=== PATIENT | male | born 1970 | race African-American/Black ===

== ENCOUNTER → 2020-03-26 11:50 | Outpatient (BNVA) | payer MEDICAID, SELFPAY | PROVIDERS: PCP Family Medicine; Referring Provider Family Medicine; Visit Provider Urology | DX: Z76.89 Persons encountering health services in other specified circumstances (principal) ==

== ENCOUNTER → 2020-04-29 14:37 | Outpatient (BNVA) | payer MEDICAID, SELFPAY | PROVIDERS: PCP Family Medicine; Visit Provider Nurse Practitioner Family ==

== ENCOUNTER → 2020-07-05 10:54 | Outpatient (BNVA) | payer MEDICAID, SELFPAY | PROVIDERS: PCP Family Medicine; Visit Provider Urology ==

== ENCOUNTER → 2020-07-30 15:21 | Outpatient (BNVA) | payer MEDICAID, SELFPAY | PROVIDERS: PCP Family Medicine; Visit Provider Nurse Practitioner Family | DX: K59.00 Constipation, unspecified (principal) | CPT/HCPCS: 99212 ==

== ENCOUNTER 2020-08-01 12:47 | Emergency (ER) | payer MEDICAID, SELFPAY ==
[2020-08-01 13:09] VITALS: BP 158/86; PULSE 97; RESP 20; TEMP 36.7; O2SAT 94; BMI 61.6
--- NOTE | 2020-08-01 14:05 | ED.NEUROSD ---
HPI - Neuro Symptoms/Deficit General Chief Complaint: Neuro Symptoms/Deficit Stated Complaint: facial droop Time Seen by Provider: 08/01/20 14:05 Related Data Home Medications Medication Instructions Recorded Confirmed amlodipine 10 mg tablet 10 mg PO DAILY 04/29/20 04/29/20 atorvastatin 10 mg tablet 10 mg PO DAILY 04/29/20 04/29/20 chlorthalidone 25 mg tablet 25 mg PO DAILY 04/29/20 04/29/20 folic acid 1 mg tablet 1 mg PO DAILY 04/29/20 04/29/20 gabapentin 300 mg capsule 300 mg PO TID 04/29/20 04/29/20 loratadine 10 mg capsule 10 mg PO DAILY 04/29/20 04/29/20 mecobalamin (vitamin B12) 1,000 1,000 mcg SUBLINGUAL DAILY 04/29/20 04/29/20 mcg disintegrating tablet,sublingual melatonin 3 mg capsule 3 mg PO BEDTIME PRN 04/29/20 04/29/20 omeprazole 20 mg capsule,delayed 20 mg PO DAILY 04/29/20 04/29/20 release thiamine HCl (vitamin B1) 100 mg 100 mg PO DAILY 04/29/20 04/29/20 tablet Previous Rx's Medication Instructions Recorded sildenafil 100 mg tablet 100 mg PO .as needed PRN 30 Days 03/26/20 #30 tab tadalafil 10 mg tablet 10 mg PO DAILY PRN 90 Days #90 tab 07/05/20 docusate sodium 100 mg capsule 100 mg PO BID #60 cap 07/30/20 methylcellulose (laxative) 500 mg 500 mg PO DAILY #30 tab 07/30/20 tablet Allergies Allergy/AdvReac Type Severity Reaction Status Date / Time lisinopril [LISINOPRIL] Allergy Intermediate COUGH Verified 07/30/20 15:33 sulfamethoxazole Allergy Intermediate WELTS Verified 07/30/20 15:33 [From BACTRIM] trimethoprim [From BACTRIM] Allergy Intermediate WELTS Verified 07/30/20 15:33 Sulfa (Sulfonamide Allergy Unknown hives Verified 07/30/20 15:33 Antibiotics) [facility] Past Medical History Surgical History History of ankle surgery History of esophagogastroduodenoscopy (EGD) Hx of umbilical hernia repair Family History Family History Other Diabetes HTN (hypertension) Social History Social History (Updated 07/30/20 @ 15:52 by MILY Castañeda) Alcohol intake: current Alcohol intake frequency: a few times a month Smoking Status: Light tobacco smoker Years Smoked: once in a while Physical Exam Vital Signs: Vital Signs: Last Vital Signs Temp 98.1 F 08/01/20 13:09 Pulse 97 08/01/20 13:09 Resp 20 08/01/20 13:09 BP 158/86 H 08/01/20 13:09 Pulse Ox 94 08/01/20 13:09 Body Mass Index 61.6 Course Course Course Narrative: 1405-This is rapid medical exam. Patient tells me he woke up 3 days ago with right sided facial weakness. No [place], vision changes, or limb weakness. On exam has right sided facial drop. No unilateral weakness in the limbs. 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 Will need labs. Deferred additional HPI, ROS, PE to primary provider. Discharge Plan Discharge Prescriptions: No Action sildenafil 100 mg tablet 100 mg PO .as needed PRN (Reason: sexual activity) 30 Days Qty: 30 RF: 1 tadalafil 10 mg tablet 10 mg PO DAILY PRN (Reason: sexual activity) 90 Days Qty: 90 RF: 0 atorvastatin 10 mg tablet 10 mg PO DAILY RF: 0 amlodipine 10 mg tablet 10 mg PO DAILY RF: 0 chlorthalidone 25 mg tablet 25 mg PO DAILY RF: 0 folic acid 1 mg tablet 1 mg PO DAILY RF: 0 gabapentin 300 mg capsule 300 mg PO TID RF: 0 loratadine 10 mg capsule 10 mg PO DAILY RF: 0 melatonin 3 mg capsule 3 mg PO BEDTIME PRNRF: 0 omeprazole 20 mg capsule,delayed release(DR/EC) 20 mg PO DAILY RF: 0 thiamine HCl (vitamin B1) 100 mg tablet 100 mg PO DAILY RF: 0 mecobalamin (vitamin B12) 1,000 mcg tablet,disintegrating 1,000 mcg sublingual DAILY RF: 0 Citrucel 500 mg tablet 500 mg PO DAILY Qty: 30 RF: 2 docusate sodium 100 mg capsule 100 mg PO BID Qty: 60 RF: 3
== END 2020-08-01 18:03 | disposition left against medical advice (07) ==
PROVIDERS: Emergency Provider Internal Medicine; PCP Family Medicine
DX: R29.810 Facial weakness (principal); I10 Essential (primary) hypertension; Z79.899 Other long term (current) drug therapy; F17.200 Nicotine dependence, unspecified, uncomplicated; Z71.6 Tobacco abuse counseling
CPT/HCPCS: 99282; 99283

== ENCOUNTER → 2020-10-01 14:51 | Outpatient (BNVA) | payer MEDICAID, SELFPAY | PROVIDERS: Visit Provider Nurse Practitioner Family ==

== ENCOUNTER → 2020-10-24 13:53 | Outpatient (BNVA) | payer MEDICAID, SELFPAY | PROVIDERS: Visit Provider Dietitian, Registered | DX: E66.01 Morbid (severe) obesity due to excess calories (principal); Z68.44 Body mass index [BMI] 60.0-69.9, adult; R73.03 Prediabetes; Z71.3 Dietary counseling and surveillance | CPT/HCPCS: 97802 ==

== ENCOUNTER → 2021-02-27 10:33 | Outpatient (BNVA) | payer MEDICAID, SELFPAY | PROVIDERS: PCP Family Medicine; Visit Provider Urology ==

== ENCOUNTER → 2021-09-22 13:34 | Outpatient (BNVA) | payer MEDICARE, MEDICAID, SELFPAY | PROVIDERS: PCP Family Medicine; Visit Provider Internal Medicine | DX: E66.01 Morbid (severe) obesity due to excess calories (principal); G47.33 Obstructive sleep apnea (adult) (pediatric); G47.34 Idiopathic sleep related nonobstructive alveolar hypoventilation; J45.909 Unspecified asthma, uncomplicated; Z68.44 Body mass index [BMI] 60.0-69.9, adult | CPT/HCPCS: 99202 ==

== ENCOUNTER 2021-09-30 16:10 | Outpatient (REF) | payer MEDICARE, MEDICAID, SELFPAY ==
--- NOTE | ~2021-09-30 | XR_ITS ---
EXAMINATION: XR KNEE, LEFT CLINICAL INFORMATION: Pain COMPARISON: Previous left knee x-ray October 2017 TECHNIQUE: 2 views of the left knee. FINDINGS: Bone alignment is normal. No fracture or dislocation is seen. There is arthritis at the patellofemoral and femoral tibial joints. There is a moderate joint effusion. XR/XR knee LT 2V IMPRESSION: Arthritis.
--- NOTE | ~2021-09-30 | XR_ITS ---
EXAMINATION: XR LUMBOSACRAL SPINE CLINICAL INFORMATION: Spondylosis without myelopathy or radiculopathy COMPARISON: None TECHNIQUE: Three views of the lumbosacral spine. FINDINGS: Bone alignment is normal. No fracture or dislocation is seen. Disc spaces are normal. There is mild spondylosis at L4-L5 and T11-T12. There is lower lumbar spine facet arthritis. XR/XR lumbar spine 2-3V IMPRESSION: Degenerative changes.
--- NOTE | ~2021-09-30 | XR_ITS ---
EXAMINATION: XR HIP, RIGHT CLINICAL INFORMATION: Pain COMPARISON: None TECHNIQUE: Two views of the right hip and pelvis. FINDINGS: Bone alignment is normal. No fracture or dislocation is seen. There is mild joint space narrowing at the right hip joint. No osteophyte formation is seen. There is a soft tissue calcification adjacent to the right greater trochanter suggestive of calcific tendinitis or bursitis. Bones of the pelvis are unremarkable. XR/XR hip RT w PEL1V IMPRESSION: Mild joint space narrowing at the right hip joint. Soft tissue calcification adjacent to the right greater trochanter suggestive of calcific tendinitis or bursitis.
--- NOTE | ~2021-09-30 | XR_ITS ---
EXAMINATION: XR SACROILIAC JOINTS CLINICAL INFORMATION: Sacrococcygeal disorder COMPARISON: None TECHNIQUE: 3 views of the sacroiliac joints FINDINGS: Bones and soft tissues are normal. No fracture. Alignment is anatomic. Sacroiliac joint spaces are well-maintained without erosions or surrounding sclerosis. XR/XR sacroiliac joint min 3V IMPRESSION: Normal sacroiliac joints.
== END 2021-09-30 16:11 | disposition home or self-care (01) ==
LOC: HO.XRAY 16:10
PROVIDERS: PCP Family Medicine; Visit Provider Nurse Practitioner Family
DX: M54.16 Radiculopathy, lumbar region (principal); M47.816 Spondylosis without myelopathy or radiculopathy, lumbar region; M25.562 Pain in left knee; M17.0 Bilateral primary osteoarthritis of knee; M25.551 Pain in right hip; M25.571 Pain in right ankle and joints of right foot; M53.3 Sacrococcygeal disorders, not elsewhere classified; E66.01 Morbid (severe) obesity due to excess calories; Z68.44 Body mass index [BMI] 60.0-69.9, adult
CPT/HCPCS: 72100; 72202; 73502; 73560; 99202

== ENCOUNTER 2021-10-28 06:13 | Outpatient (REF) | payer MEDICARE, MEDICAID, SELFPAY ==
--- NOTE | ~2021-10-28 | FL_ITS ---
EXAMINATION: XR FLUOROSCOPY WITH IMAGES CLINICAL INFORMATION: M25.562 - Pain in left knee COMPARISON: Radiographs left knee 09/30/2021 TECHNIQUE: Fluoroscopy performed by Dr. Elías Walden. Fluoroscopy time: 0.4 minutes. Cumulative Dose: 5.64 mGy. DAP: 1.53 Gy-cm2. Images: 3. FINDINGS: There are spinal needles adjacent to the distal femoral shaft, medial and lateral sides, mid depth. There is a spinal needle adjacent to the proximal tibia on medial side mid depth. There are again degenerative changes demonstrated with narrowing medial knee joint compartment, osteophytes, and mild genu varus. FL/FL guidance in treatment room IMPRESSION: Fluoroscopy for pain management procedures.
== END 2021-10-28 06:14 | disposition home or self-care (01) ==
LOC: HO.RADIR 06:13
PROVIDERS: Visit Provider Anesthesiology
DX: M17.12 Unilateral primary osteoarthritis, left knee (principal)
CPT/HCPCS: 64454; J2795

== ENCOUNTER → 2021-10-30 08:04 | Outpatient (BNVA) | payer MEDICARE, MEDICAID, SELFPAY | PROVIDERS: PCP Family Medicine; Visit Provider Anesthesiology | DX: E66.01 Morbid (severe) obesity due to excess calories (principal); Z68.44 Body mass index [BMI] 60.0-69.9, adult; M54.16 Radiculopathy, lumbar region; M47.816 Spondylosis without myelopathy or radiculopathy, lumbar region; M25.562 Pain in left knee; M53.3 Sacrococcygeal disorders, not elsewhere classified; M25.551 Pain in right hip | CPT/HCPCS: 99212 ==

== ENCOUNTER → 2021-11-24 13:58 | Outpatient (BNVA) | payer MEDICARE, MEDICAID, SELFPAY | PROVIDERS: PCP Family Medicine; Visit Provider Internal Medicine | DX: E66.01 Morbid (severe) obesity due to excess calories (principal); G47.33 Obstructive sleep apnea (adult) (pediatric); G47.34 Idiopathic sleep related nonobstructive alveolar hypoventilation; J45.909 Unspecified asthma, uncomplicated; Z68.44 Body mass index [BMI] 60.0-69.9, adult | CPT/HCPCS: 99212 ==

== ENCOUNTER 2021-12-16 13:13 | Outpatient (REF) | payer MEDICARE, MEDICAID, SELFPAY ==
--- NOTE | ~2021-12-16 | XR_ITS ---
EXAMINATION: XR SHOULDER, LEFT CLINICAL INFORMATION: Pain. COMPARISON: Regressed dated 12/21/2017. TECHNIQUE: AP external rotation, Grashey, scapular Y, and axillary views of the left shoulder. FINDINGS: Bony alignment and mineralization are normal. The glenohumeral joint is intact. The acromioclavicular and coracoclavicular intervals are normal. There is a small distal acromial undersurface osteophyte. There is mild cortical irregularity and subcortical sclerosis of the greater tuberosity of the proximal left humerus. No fracture or dislocation is seen. There is no abnormal soft tissue calcification or foreign body. No left pneumothorax is seen. XR/XR shoulder LT min 2V IMPRESSION: 1. No fracture or dislocation is seen. 2. Findings suggest possible rotator cuff impingement. No dioni calcific tendinitis is seen.
== END 2021-12-16 13:14 | disposition home or self-care (01) ==
LOC: HO.XRAY 13:13
PROVIDERS: PCP Family Medicine; Visit Provider Family Medicine
DX: M25.512 Pain in left shoulder (principal)
CPT/HCPCS: 73030

== ENCOUNTER → 2022-02-10 11:28 | Outpatient (BNVA) | payer MEDICARE, MEDICAID, SELFPAY | PROVIDERS: Visit Provider Internal Medicine | DX: G47.33 Obstructive sleep apnea (adult) (pediatric) (principal); G47.34 Idiopathic sleep related nonobstructive alveolar hypoventilation; J45.909 Unspecified asthma, uncomplicated; E66.01 Morbid (severe) obesity due to excess calories; Z68.44 Body mass index [BMI] 60.0-69.9, adult | CPT/HCPCS: Q3014 ==

== ENCOUNTER 2022-09-25 12:10 | Outpatient (REF) | payer MEDICARE, MEDICAID, SELFPAY ==
--- NOTE | ~2022-09-25 | XR_ITS ---
EXAMINATION: XR HIP, RIGHT CLINICAL INFORMATION: Pain COMPARISON: Previous x-ray September 2021 TECHNIQUE: Two views of the right hip. FINDINGS: Bone alignment is normal. No fracture or dislocation. Moderate arthritis at the right hip joint with joint space narrowing and osteophyte formation. Soft tissue calcification adjacent to the greater trochanter suggestive of calcific bursitis or tendinitis. Soft tissue arterial calcification. XR/XR hip RT min 2V IMPRESSION: Arthritis. Soft tissue calcification adjacent to the right greater trochanter.
--- NOTE | ~2022-09-25 | XR_ITS ---
EXAMINATION: XR KNEE, LEFT CLINICAL INFORMATION: Previous x-ray September 2021 COMPARISON: None available. TECHNIQUE: Four views of the left knee. FINDINGS: There is new medial subluxation of the distal femur with respect to the proximal tibia. Bone alignment is otherwise normal. No fracture or dislocation. There is severe arthritis at the medial femoral tibial joint with lfri-or-fvif appearance. There is mild to moderate arthritis at the patellofemoral and lateral femoral tibial joint. There is a small to moderate joint effusion. XR/XR knee LT 3V IMPRESSION: Medial subluxation of the distal femur with respect to the proximal tibia and osteoarthritis increased from September 2021.
== END 2022-09-25 12:11 | disposition home or self-care (01) ==
LOC: HO.HHCX 12:10
PROVIDERS: Visit Provider Family Medicine
DX: M25.562 Pain in left knee (principal); M25.551 Pain in right hip
CPT/HCPCS: 73502; 73562

== ENCOUNTER 2022-10-30 09:38 | Outpatient (REF) | payer MEDICARE, MEDICAID, SELFPAY ==
--- NOTE | ~2022-10-30 | XR_ITS ---
EXAMINATION: XR PELVIS CLINICAL INFORMATION: Pain COMPARISON: Frontal view right hip 09/25/22 TECHNIQUE: AP view of the pelvis. FINDINGS: The upper aspect of the iliac bones are excluded. No definite disruption of the SI joints symphysis or left hip. There is marked narrowing of the superolateral femoral acetabular joints and there proliferative osteophytes involving the femoral head. Smooth ossification adjacent to the greater trochanter. In comparison with frontal view of the pelvis 09/30/21 joint space narrowing has likely worsened XR/XR pelvis 1-2V IMPRESSION: 1. No acute fracture or subluxation. 2. Moderate to marked arthritic changes of the right hip.
== END 2022-10-30 09:39 | disposition home or self-care (01) ==
LOC: HO.HOSX 09:38
PROVIDERS: Visit Provider Orthopaedic Surgery
DX: M17.12 Unilateral primary osteoarthritis, left knee (principal); M16.11 Unilateral primary osteoarthritis, right hip; E66.01 Morbid (severe) obesity due to excess calories; Z68.43 Body mass index [BMI] 50.0-59.9, adult
CPT/HCPCS: 20610; 72170; 99202; J1100

== ENCOUNTER 2022-10-30 10:54 | Outpatient (AMB) | payer MEDICARE, MEDICAID, SELFPAY ==
--- NOTE | 2022-10-30 11:34 | A.OFFVIS_ITS ---
Intake Vital Signs 10/30/22 11:35 Height 6 ft 2 in Weight 448 lb BMI 57.5 Intake Visit Reasons: New Pt - Right Hip, Left Knee Pain Intake Note: Jordon is a 51 year old male who presents today as a new patient with complaints of right hip pain and left knee pain. He has previously been treated for his left knee pain with pain mgmt who did a Left GNB 10/28/21. Currently states his left knee was to dislocate and gives out. States he would like to discuss treatment vs surgery. States he is having groin pain and at times has sharp radiating pain down his leg. Patient is also having pain in his left shoulder. Allergies lisinopril [LISINOPRIL] Allergy (Intermediate, Verified 10/30/22 11:54) COUGH sulfamethoxazole [From BACTRIM] Allergy (Intermediate, Verified 10/30/22 11:54) WELTS trimethoprim [From BACTRIM] Allergy (Intermediate, Verified 10/30/22 11:54) WELTS Sulfa (Sulfonamide Antibiotics) Allergy (Unknown, Verified 10/30/22 11:54) hives HPI New Pt - Right Hip, Left Knee Pain HPI Details this is a 51-year-old gentleman with right hip and left knee pain. He has difficulty walking comfortably. He has difficulty with stairs. He has difficulty sleeping at night. He has been on a weight loss journey. He has lost 60 lb over the past 6 months approximately and is continuing to work toward weight loss. His BMI is currently 57. [facility] Medical History Asthma Nocturnal hypoxemia DINORA (obstructive sleep apnea) Surgical History History of ankle surgery History of esophagogastroduodenoscopy (EGD) Hx of umbilical hernia repair Family History Other Diabetes HTN (hypertension) Social History Alcohol intake: current Alcohol intake frequency: a few times a month Years Smoked: once in a while Physical Exam Vital Signs: BMI result Body Mass Index 57.5 Const Other: Morbidly obese but truncal obesity Extrem Other: positive impingement test right hip with antalgic gait left knee with tenderness to palpation medial and lateral joint line. 120 degrees of flexion with full extension. Office Procedures Joint Injection/Drain Joint Injection/Drain Details: Injected 1 mL of Decadron and 3 mL 1% lidocaine and 3 mL of 0.25% Marcaine. Site was prepped using aseptic technique. Patient tolerated the procedure well. Primary Site: left knee Approach Used: anterolateral Coding - Large joint Procedure code (CPT) selection complete Results Reviewed Results Reviewed: 10/30/22 12:02 Lidocaine HCl 2 % MPF [Xylocaine 2 % MPF] 5 ml .ROUTE .STK-MED ONE dexAMETHasone sod phosphate [Decadron] 4 mg .ROUTE .STK-MED ONE I personally reviewed relevant radiographs. Severe right hip and left knee osteoarthritis Assessment & Plan Assessment & Plan (1) Osteoarthritis of left knee: Code(s): M17.12 - Unilateral primary osteoarthritis, left knee Plan: patient has severe osteoarthritis of the left knee. I injected his left knee. Recommend weight loss. (2) Primary osteoarthritis of right hip: Code(s): M16.11 - Unilateral primary osteoarthritis, right hip Plan: Patient is severe osteoarthritis of the right hip. This is a difficult problem given his weight. I recommend activity modification and continue use of assistive device. (3) Morbid obesity with BMI of 50.0-59.9, adult: Code(s): E66.01 - Morbid (severe) obesity due to excess calories; Z68.43 - Body mass index [BMI] 50.0-59.9, adult Plan: Patient is working on this. I recommend consultation with bariatric spur. Orders: Orders XR pelvis 1-2V Today M25.559 - Pain in unspecified hip Coding Level of Care Code New Pt Level 4 (68092) Diagnoses Osteoarthritis of left knee M17.12 Primary osteoarthritis of right hip M16.11 Morbid obesity with BMI of 50.0-59.9, adult E66.01; Z68.43 CPT Codes Coding - Large joint: 12748 - Large joint ([id number])
[2022-10-30 11:35] VITALS: BMI 57.5
== END 2022-10-30 12:12 | disposition home or self-care (01) ==
PROVIDERS: Visit Provider Orthopaedic Surgery
DX: M17.12 Unilateral primary osteoarthritis, left knee (principal); M16.11 Unilateral primary osteoarthritis, right hip; E66.01 Morbid (severe) obesity due to excess calories; Z68.43 Body mass index [BMI] 50.0-59.9, adult
CPT/HCPCS: 20610; 99204

== ENCOUNTER 2023-01-25 10:12 | Outpatient (AMB) | payer MEDICARE, SELFPAY ==
--- NOTE | 2023-01-25 10:18 | A.OFFVIS_ITS ---
Intake Intake Visit Reasons: OV-left knee injection-last injection 10/30/22 Intake Note: Jordon is a 52 year old male who presents today for a follow up of his left knee OA. Last injection done 10/30/22, Left GNB done with Pain mgmt 10/28/21. He also reports some left hand pain and swelling today. He also reports left shoulder pain from an injury a few years ago. He is looking to discuss his left shoulder today and if he needs surgical intervention. Allergies lisinopril [LISINOPRIL] Allergy (Intermediate, Verified 01/25/23 10:21) COUGH sulfamethoxazole [From BACTRIM] Allergy (Intermediate, Verified 01/25/23 10:21) WELTS trimethoprim [From BACTRIM] Allergy (Intermediate, Verified 01/25/23 10:21) WELTS Sulfa (Sulfonamide Antibiotics) Allergy (Unknown, Verified 01/25/23 10:21) hives Medication List - Last Reconciled 01/25/23 by Skye Herrera RN albuterol sulfate 90 mcg/actuation (Ventolin HFA) inhalation amlodipine 10 mg PO DAILY atorvastatin 10 mg PO DAILY bupropion HCl 150 mg PO QAM chlorthalidone 25 mg PO DAILY cholecalciferol (vitamin D3) 50 mcg PO QAM docusate sodium 100 mg PO BID fluticasone propionate 220 mcg/actuation (Flovent HFA) 2 puffs inhalation BID folic acid 1 mg PO DAILY gabapentin 300 mg PO TID loratadine 10 mg PO DAILY loratadine 10 mg PO QAM mecobalamin (vitamin B12) 1,000 mcg sublingual DAILY melatonin 3 mg PO BEDTIME PRN melatonin 3 mg PO BEDTIME methylcellulose (laxative) (Citrucel) 500 mg PO DAILY multivitamin (One Daily Multivitamin tablet) 1 tab PO QAM omeprazole 20 mg PO DAILY semaglutide (Ozempic) 1 mg subcut QWEEK sildenafil 100 mg PO .as needed PRN 30 days tadalafil 10 mg PO DAILY PRN 90 days thiamine HCl (vitamin B1) 100 mg PO DAILY Ventolin HFA 90 mcg/actuation (albuterol sulfate) 2 puffs PO Q4-6H PRN NS HPI OV-left knee injection-last injection 10/30/22 HPI Details Jordon is a 52 year old man who returns with complaints of left knee & shoulder pain. He was last seen for his left knee OA and injected on 10/30/22. He continues to complain of pain with daily activity, worse with using stairs. He also complains of left shoulder pain & weakness. He says he injured his shoulder in ~2018 and has had intermittent pain since. [facility] Medical History Asthma Nocturnal hypoxemia DINORA (obstructive sleep apnea) Surgical History History of ankle surgery History of esophagogastroduodenoscopy (EGD) Hx of umbilical hernia repair Family History Other Diabetes HTN (hypertension) Social History Alcohol intake: current Alcohol intake frequency: a few times a month Years Smoked: once in a while Review of Systems Const All systems reviewed & are unremarkable except as noted in HPI and below Physical Exam Const Other: Morbidly obese but truncal obesity General: no acute distress, alert and awake Orientation/consciousness: patient oriented x3 HEENT Head: Yes normocephalic and Yes atraumatic Eyes EOM: EOMs intact bilaterally Resp Effort & Inspection: normal respiratory effort and able to speak in complete sentences Cardio Jugular venous distension: no JVD Skin General skin exam: turgor normal Rashes: no rashes Neuro General: patient oriented x3 Extrem Other: Left Knee: TTP medial and lateral joint line. 120 degrees of flexion with full extension. Left Shoulder: Weakness with empty can testing Psych Appearance: grossly normal Affect: normal affect Attitude: cooperative Office Procedures Joint Injection/Drain Joint Injection/Drain Details: Injected 1 mL of Decadron and 3 mL 1% lidocaine and 3 mL of 0.25% Marcaine. Site was prepped using aseptic technique. Patient tolerated the procedure well. Primary Site: left knee Approach Used: anterolateral Coding 89463 - Large joint Procedure code (CPT) selection complete Results Reviewed Results Reviewed: 01/25/23 10:41 BUPivacaine MPF 0.25 % [Sensorcaine-MPF 0.25% 10 ML] 10 ml .ROUTE .STK-MED ONE Lidocaine HCl 2 % MPF [Xylocaine 2 % MPF] 5 ml .ROUTE .STK-MED ONE dexAMETHasone sod phosphate [Decadron] 4 mg .ROUTE .STK-MED ONE Assessment & Plan Assessment & Plan (1) Osteoarthritis of left knee: Code(s): M17.12 - Unilateral primary osteoarthritis, left knee Plan: This is a 52 year old man with severe OA of the left knee. He has pain with daily activity, worse with using stairs, and some relief from steroid injections. I injected his left knee, which he tolerated well. I recommend weight loss. He can follow up prn (2) Morbid obesity with BMI of 50.0-59.9, adult: Code(s): E66.01 - Morbid (severe) obesity due to excess calories; Z68.43 - Body mass index [BMI] 50.0-59.9, adult Plan: Patient is working on this. I recommend consultation with bariatric spur. (3) Left shoulder pain: Code(s): M25.512 - Pain in left shoulder Plan: COntinued shoulder pain & weakness, with a hx of injury in ~2018 that has not improved with PT and injections and activity modification. I ordered PT and an MRI of his shoulder to assess. He will follow up when completed for review. (4) Internal derangement of left shoulder: Code(s): M24.812 - Other specific joint derangements of left shoulder, not elsewhere classified Plan Scribed for Heath Melendez MD by Diego Lin, medical numerical control operator, on 01/25/23 at 11:00 AM, EST. Orders: Orders PT Evaluation and Treatment Today M24.812 - Other specific joint derangements of left shoulder, not elsewhere classified, M25.512 - Pain in left shoulder MR shoulder LT wo con Today M24.812 - Other specific joint derangements of left shoulder, not elsewhere classified Coding Level of Care Code Est Pt Level 4 (27879) Diagnoses Osteoarthritis of left knee M17.12 Morbid obesity with BMI of 50.0-59.9, adult E66.01; Z68.43 Left shoulder pain M25.512 Internal derangement of left shoulder M24.812 CPT Codes Coding - 15752 Large joint: 55570 - Large joint ([id number])
== END 2023-01-25 10:58 | disposition home or self-care (01) ==
PROVIDERS: Visit Provider Orthopaedic Surgery
DX: M17.12 Unilateral primary osteoarthritis, left knee (principal); M24.812 Other specific joint derangements of left shoulder, not elsewhere classified; E66.01 Morbid (severe) obesity due to excess calories; Z68.43 Body mass index [BMI] 50.0-59.9, adult
CPT/HCPCS: 20610; 99214

== ENCOUNTER → 2023-01-25 10:12 | Outpatient (BNVA) | payer MEDICARE, MEDICAID, SELFPAY | PROVIDERS: Visit Provider Orthopaedic Surgery | DX: M17.12 Unilateral primary osteoarthritis, left knee (principal); M25.512 Pain in left shoulder; M24.812 Other specific joint derangements of left shoulder, not elsewhere classified; E66.01 Morbid (severe) obesity due to excess calories; Z68.43 Body mass index [BMI] 50.0-59.9, adult | CPT/HCPCS: 20610; 99212; J1100 ==

== ENCOUNTER 2023-02-01 11:16 | Outpatient (REF) | payer MEDICARE, MEDICAID, SELFPAY ==
[2023-02-01 14:05] LABS: Uric Acid 7.1 mg/dL (3.4-7.0)
[2023-02-01 14:32] LABS: Microalbum/Creatinine Ratio Ur 3.1 ug/mg cr (<30)
== END 2023-02-01 11:17 | disposition home or self-care (01) ==
LOC: HO.HHCL 11:16
PROVIDERS: Visit Provider Family Medicine
DX: M79.642 Pain in left hand (principal); E66.01 Morbid (severe) obesity due to excess calories
CPT/HCPCS: 36415; 82043; 82570; 84550

== ENCOUNTER 2023-03-30 11:09 | Emergency (ER) | payer MEDICARE, MEDICAID, SELFPAY ==
[2023-03-30 12:11] VITALS: BP 153/100; PULSE 67; RESP 16; TEMP 37.1; O2SAT 100; BMI 52.6
--- NOTE | 2023-03-30 12:14 | ED.GENADULT ---
HPI - General Adult General Chief complaint: Upper Respiratory Symptoms Stated complaint: ear infection Time Seen by Provider: 03/30/23 12:14 Source: patient, RN notes reviewed and old records reviewed Mode of arrival: ambulatory Limitations: no limitations History of Present Illness HPI narrative: 52-year-old male presents for evaluation of dental pain and ear pain. Patient reports his pain is ear started about 5 days ago it is actually improving He reports that he had drainage from the right ear He also reports swelling in his gums This started 2 days ago Related Data Home Medications Medication Instructions Recorded Confirmed amlodipine 10 mg tablet 10 mg PO DAILY 04/29/20 01/25/23 atorvastatin 10 mg tablet 10 mg PO DAILY 04/29/20 01/25/23 chlorthalidone 25 mg tablet 25 mg PO DAILY 04/29/20 01/25/23 folic acid 1 mg tablet 1 mg PO DAILY 04/29/20 01/25/23 gabapentin 300 mg capsule 300 mg PO TID 04/29/20 01/25/23 loratadine 10 mg capsule 10 mg PO DAILY 04/29/20 01/25/23 mecobalamin (vitamin B12) 1,000 1,000 mcg sublingual DAILY 04/29/20 01/25/23 mcg disintegrating tablet,sublingual melatonin 3 mg capsule 3 mg PO BEDTIME PRN 04/29/20 01/25/23 thiamine HCl (vitamin B1) 100 mg 100 mg PO DAILY 04/29/20 01/25/23 tablet bupropion HCl 150 mg 24 hr tablet, 150 mg PO QAM 02/27/21 01/25/23 extended release cholecalciferol (vitamin D3) 50 50 mcg PO QAM 02/27/21 01/25/23 mcg (2,000 unit) capsule fluticasone propionate 220 2 puff inhalation BID 02/27/21 01/25/23 mcg/actuation HFA aerosol inhaler (Flovent HFA) loratadine 10 mg tablet 10 mg PO QAM allergies 02/27/21 01/25/23 melatonin 3 mg tablet 3 mg PO BEDTIME 02/27/21 01/25/23 multivitamin (One Daily 1 tab PO QAM 02/27/21 01/25/23 Multivitamin tablet) albuterol sulfate 90 mcg/actuation inhalation 09/30/21 01/25/23 aerosol inhaler (Ventolin HFA) semaglutide 1 mg/dose (2 mg/1.5 1 mg subcut QWEEK 01/25/23 01/25/23 mL) subcutaneous pen injector (Ozempic) Previous Rx's Medication Instructions Recorded omeprazole 20 mg capsule,delayed 20 mg PO DAILY #30 caps 10/01/20 release docusate sodium 100 mg capsule 100 mg PO BID #60 caps 12/23/20 methylcellulose (laxative) 500 mg 500 mg PO DAILY #30 tabs 01/21/21 tablet (Citrucel) sildenafil 100 mg tablet 100 mg PO .as needed PRN sexual 02/27/21 activity 30 days #30 tabs tadalafil 10 mg tablet 10 mg PO DAILY PRN sexual activity 02/27/21 90 days #90 tabs Ventolin HFA 90 mcg/actuation 2 puff PO Q4-6H PRN for wheezing 07/01/22 aerosol inhaler (albuterol sulfate) #18 grams acetic acid 2 % ear solution 3 drp otic (ears) Q6H 7 days #15 mL 03/30/23 amoxicillin 500 mg capsule 500 mg PO Q8H #30 caps 03/30/23 Allergies Allergy/AdvReac Type Severity Reaction Status Date / Time lisinopril [LISINOPRIL] Allergy Intermediate COUGH Verified 01/25/23 10:21 sulfamethoxazole Allergy Intermediate WELTS Verified 01/25/23 10:21 [From BACTRIM] trimethoprim [From BACTRIM] Allergy Intermediate WELTS Verified 01/25/23 10:21 Sulfa (Sulfonamide Allergy Unknown hives Verified 01/25/23 10:21 Antibiotics) Review of Systems Constitutional: Constitutional: Denies chills and Denies fever(s) ENT: Reports ear discharge, Reports otalgia and Reports mouth pain Cardiovascular: Cardiovascular: Denies chest pain Respiratory: Respiratory: Denies cough and Denies pain with cough Gastrointestinal: Gastrointestinal: Denies abdominal pain, Denies nausea and Denies vomiting Musculoskeletal: Musculoskeletal: Denies back pain [facility] Past Medical History Medical History Asthma Nocturnal hypoxemia DINORA (obstructive sleep apnea) Surgical History History of ankle surgery History of esophagogastroduodenoscopy (EGD) Hx of umbilical hernia repair Family History Family History Other Diabetes HTN (hypertension) Social History Social History Alcohol intake: current Alcohol intake frequency: a few times a month Years Smoked: once in a while Physical Exam ED Vital Signs: Vital Signs - 24 hr 03/30/23 12:11 Temperature 98.7 F Pulse Rate 67 Respiratory Rate 16 Blood Pressure 153/100 H Pulse Oximetry 100 Oxygen Delivery Method Room Air BMI result Body Mass Index 52.6 Const General: healthy appearing, comfortable, no acute distress, alert and awake Nutritional Appearance: well nourished Orientation/consciousness: patient oriented x3 HENMT Other: No tenderness with manipulation of the tragus and pinna bilaterally. No otorrhea Multiple dental caries, there is slight gingival edema around tooth numbers 8 and 9. No obvious drainable abscess Head: Yes normocephalic and Yes atraumatic Ears: TM's normal bilaterally and EAC's normal Mouth: other Throat: Yes posterior oropharynx normal Eyes Eyelids: Yes eyelids normal Conjunctivae: conjunctivae normal Sclerae: sclerae normal Corneas: corneas normal Pupils: Equal, round and reactive pupils present EOM: EOMs intact bilaterally Neck Neck: Yes full ROM Resp Effort & Inspection: normal respiratory effort, able to speak in complete sentences and not labored Skin General skin exam: elasticity normal Neuro General: patient oriented x3 Cranial nerves: Yes Equal, round and reactive pupils present and Yes Bilaterally intact EOM present Cognition (Neuro): normal cognition Extrem Other: Moving all extremities well without any obvious deformities Medical Decision Making Medical Decision Making MDM Narrative: 52-year-old male presents for evaluation of ear pain and dental pain. His your pain appears to be improving. There is no obvious otitis media or otitis externa. Will treat with ascetic acid drops. The patient given amoxicillin for dental caries Differential Diagnosis Differential Diagnoses: The differential diagnosis associated with the presentation includes Otitis media Otitis externa Dental caries Dental abscess Discharge Plan Discharge Clinical Impression: Dental caries, Ear pain, right Patient Disposition: Home, Self-Care Instructions: Earache (ED) Additional Instructions: Use ascetic acid drops as directed to each ear Take amoxicillin 3 times daily for 10 days Follow-up with your primary doctor as well as your dentist Prescriptions: New amoxicillin 500 mg capsule 500 mg PO Q8H Qty: 30 0RF acetic acid 2 % solution 3 drp otic (ears) Q6H 7 Days Qty: 15 0RF Rx Instructions: apply to (cotton) wick; replace wick every 24 hours No Action docusate sodium 100 mg capsule 100 mg PO BID Qty: 60 6RF Citrucel 500 mg tablet 500 mg PO DAILY Qty: 30 6RF Rx Instructions: take with fool glass of water first thing in AM. albuterol sulfate [Ventolin HFA] 90 mcg/actuation HFA aerosol inhaler 2 puff PO Q4-6H PRN (Reason: for wheezing) Qty: 18 2RF atorvastatin 10 mg tablet 10 mg PO DAILY amlodipine 10 mg tablet 10 mg PO DAILY chlorthalidone 25 mg tablet 25 mg PO DAILY folic acid 1 mg tablet 1 mg PO DAILY gabapentin 300 mg capsule 300 mg PO TID loratadine 10 mg capsule 10 mg PO DAILY melatonin 3 mg capsule 3 mg PO BEDTIME PRN thiamine HCl (vitamin B1) 100 mg tablet 100 mg PO DAILY mecobalamin (vitamin B12) 1,000 mcg tablet,disintegrating 1,000 mcg sublingual DAILY Rx Instructions: place tablet under tongue and allow to dissolve for at least30 secs before swallowing omeprazole 20 mg capsule,delayed release(DR/EC) 20 mg PO DAILY Qty: 30 6RF multivitamin [One Daily Multivitamin] Tablet 1 tab PO QAM melatonin 3 mg tablet 3 mg PO BEDTIME Flovent HFA 220 mcg/actuation HFA aerosol inhaler 2 puff inhalation BID loratadine 10 mg tablet 10 mg PO QAM bupropion HCl 150 mg tablet extended release 24 hr 150 mg PO QAM cholecalciferol (vitamin D3) 50 mcg (2,000 unit) capsule 50 mcg PO QAM tadalafil 10 mg tablet 10 mg PO DAILY PRN (Reason: sexual activity) 90 Days Qty: 90 1RF Rx Instructions: daily sildenafil 100 mg tablet 100 mg PO .as needed PRN (Reason: sexual activity) 30 Days Qty: 30 1RF Rx Instructions: administer 60 minutes before intended activity albuterol sulfate [Ventolin HFA] 90 mcg/actuation HFA aerosol inhaler inhalation Ozempic 1 mg/dose (2 mg/1.5 mL) pen injector 1 mg subcut QWEEK
== END 2023-03-30 12:30 | disposition home or self-care (01) ==
LOC: HO.ED 12:28
PROVIDERS: Emergency Provider Emergency Medicine; PCP Family Medicine
DX: K02.9 Dental caries, unspecified (principal); H92.03 Otalgia, bilateral; K08.89 Other specified disorders of teeth and supporting structures; Z79.899 Other long term (current) drug therapy
CPT/HCPCS: 99282; 99283

== ENCOUNTER 2023-10-19 12:56 | Outpatient (REF) | payer OTHER, MEDICAID, SELFPAY ==
[2023-10-20 08:18] LABS: Syphilis Screen Nonreactive (Nonreactive)
[2023-10-20 08:23] LABS: HIV AB/AG Nonreactive (Nonreactive); HIV Num 1 0.06 S/CO (0.00-0.99); ~HepC Num1 0.16 S/CO (0.00-0.79); ~Hepatitis C Antibody Nonreactive (Nonreactive)
== END 2023-10-19 12:57 | disposition home or self-care (01) ==
LOC: HO.HHCL 12:56
PROVIDERS: Visit Provider Family Medicine
DX: A64 Unspecified sexually transmitted disease (principal)
CPT/HCPCS: 36415; 86780; 86803; 87389

== ENCOUNTER 2024-01-05 11:18 | Outpatient (REF) | payer OTHER, MEDICAID, SELFPAY ==
[2024-01-05 14:35] LABS: Alanine Aminotransferase 17 U/L (0-40); Albumin Level 4.2 g/dL (3.5-5.0); Alkaline Phosphatase 52 U/L (39-117); Anion Gap 15 (12-20); Aspartate Amino Transferase 15 U/L (5-37); Bilirubin Direct 0.2 mg/dL (0.0-0.5); Bilirubin Total 0.4 mg/dL (0.0-1.0); Blood Urea Nitrogen 11 mg/dL (9-16); Carbon Dioxide 29 mmol/L (22-29); Chloride 101 mmol/L (96-108); Cholesterol 208 mg/dL (<200); Estimated Glomerular Filt Rate > 60; Glucose Random 106 mg/dL (60-115); HDL Cholesterol 52 mg/dL (>40); LDL Cholesterol Calculated 125 mg/dL (<100); Potassium 3.4 mmol/L (3.3-5.1); Sodium 142 mmol/L (135-145); Triglycerides 158 mg/dL (<150)
[2024-01-05 15:42] LABS: Estimated Average Glucose 111 mg/dL; Hemoglobin A1c % 5.5 % (<6.0)
== END 2024-01-05 11:19 | disposition home or self-care (01) ==
LOC: HO.HHCL 11:18
PROVIDERS: Visit Provider Family Medicine
DX: E11.9 Type 2 diabetes mellitus without complications (principal)
CPT/HCPCS: 36415; 80048; 80061; 80076; 83036

== ENCOUNTER 2024-01-12 10:25 | Outpatient (REF) | payer OTHER, MEDICAID, SELFPAY ==
[2024-01-12 11:58] LABS: Creatinine Urine 392.96 mg/dL; Microalbum/Creatinine Ratio Ur 5.5 ug/mg cr (<30)
[2024-01-12 12:58] LABS: CT PCR NOT DETECTED (Not Detect.); NG PCR NOT DETECTED (Not Detect.)
== END 2024-01-12 10:26 | disposition home or self-care (01) ==
LOC: HO.HHCL 10:25
PROVIDERS: Visit Provider Family Medicine
DX: E11.9 Type 2 diabetes mellitus without complications (principal); A64 Unspecified sexually transmitted disease
CPT/HCPCS: 82043; 82570; 87491; 87591

== ENCOUNTER 2024-01-12 11:30 | Outpatient (REF) | payer OTHER, MEDICAID, SELFPAY | END 2024-01-12 11:31 | disposition home or self-care (01) | LOC: HO.HHCLNP 11:30 | PROVIDERS: Visit Provider Emergency Medicine | DX: L73.8 Other specified follicular disorders (principal) | CPT/HCPCS: 87070; 87205 ==

== ENCOUNTER 2024-03-27 11:17 | Outpatient (REF) | payer OTHER, MEDICAID, SELFPAY ==
[2024-03-27 14:23] LABS: Syphilis Screen Nonreactive (Nonreactive)
[2024-03-27 14:47] LABS: CT PCR NOT DETECTED (Not Detect.); NG PCR NOT DETECTED (Not Detect.)
[2024-03-28 08:03] LABS: HIV AB/AG Nonreactive (Nonreactive); HIV Num 1 0.06 S/CO (0.00-0.99); ~HepC Num1 0.13 S/CO (0.00-0.79); ~Hepatitis C Antibody Nonreactive (Nonreactive)
== END 2024-03-27 11:18 | disposition home or self-care (01) ==
LOC: HO.HHCL 11:17
PROVIDERS: Visit Provider Family Medicine
DX: Z11.3 Encounter for screening for infections with a predominantly sexual mode of transmission (principal)
CPT/HCPCS: 86780; 86803; 87389; 87491; 87591

== ENCOUNTER 2024-04-17 15:06 | Outpatient (REF) | payer OTHER, MEDICAID, SELFPAY ==
[2024-04-17 17:42] LABS: MANUAL DIFF FLAG NO
[2024-04-17 17:53] LABS: Basophils Percent Auto 0.4 % (0-2); Eosinophils Absolute Auto 0.3 X10*3/uL (0.0-0.4); Eosinophils Percent Auto 3.1 % (0-4); Hematocrit 44.8 % (42.0-52.0); Hemoglobin 15.2 g/dl (14.0-18.0); Imm Gran Abs Auto 0.02 X10*3/uL (0.00-0.03); Imm Gran Pct Auto 0.2 % (0.0-0.4); Lymphocytes Absolute Auto 2.9 X10*3/uL (1.2-4.9); Lymphocytes Percent Auto 29.4 % (20-40); Mean Corpuscular HGB Conc 33.9 g/dl (31.0-36.0); Mean Corpuscular Hemoglobin 29.5 pg (27.0-33.0); Mean Corpuscular Volume 86.8 fL (80.0-98.0); Mean Platelet Volume 10.6 fL (9.4-12.4); Monocytes Absolute Auto 0.5 X10*3/uL (0.1-1.2); Monocytes Percent Auto 5.6 % (2-11); Neutrophils Percent Auto 61.3 % (45-73); Platelet Count 388 X10*3/uL (160-400); Red Blood Count 5.16 X10*6/uL (4.60-5.80); Red Cell Distribution Width 13.1 % (11.0-16.0); White Blood Count 9.7 X10*3/uL (4.8-10.8)
[2024-04-17 17:56] LABS: INTERNATIONAL NORM RATIO 1.1 (0.9-1.1); Prothrombin Time 12.4 SEC (10.9-12.4)
== END 2024-04-17 15:07 | disposition home or self-care (01) ==
LOC: HO.CHCLDS 15:06
PROVIDERS: Visit Provider Family Medicine
DX: F10.20 Alcohol dependence, uncomplicated (principal); Z79.01 Long term (current) use of anticoagulants
CPT/HCPCS: 36415; 85025; 85610

== ENCOUNTER 2024-07-10 09:07 | Outpatient (REF) | payer OTHER, SELFPAY ==
[2024-07-10 13:05] LABS: Anion Gap 12 (12-20); Blood Urea Nitrogen 9 mg/dL (9-16); Calcium 9.3 mg/dL (8.4-10.2); Carbon Dioxide 27 mmol/L (22-29); Chloride 104 mmol/L (96-108); Cholesterol 214 mg/dL (<200); Estimated Glomerular Filt Rate > 60; Glucose Random 103 mg/dL (60-115); HDL Cholesterol 52 mg/dL (>40); LDL Cholesterol Calculated 122 mg/dL (<100); Potassium 3.3 mmol/L (3.3-5.1); Sodium 140 mmol/L (135-145); Triglycerides 201 mg/dL (<150)
== END 2024-07-10 09:08 | disposition home or self-care (01) ==
LOC: HO.HHCL 09:07
PROVIDERS: Visit Provider Family Medicine
DX: E11.9 Type 2 diabetes mellitus without complications (principal)
CPT/HCPCS: 36415; 80048; 80061

== ENCOUNTER 2024-11-28 08:17 | Outpatient (REF) | payer OTHER, SELFPAY ==
--- OUTSIDE RECORDS SUMMARY | 2024-11-28 08:55 | XMS_ITS | Clinical Summary ---
Author Organization [facility] Address [address] [place] [address] Care Team Providers Care Sky Diver Name Role Phone Valeria Tubbs MD Primary Care Provider [phone] Allergies Active Allergy Reactions Criticality Noted Date Comments Sulfamethoxazole-Trimethoprim Hives 2005 Medications Medication Sig Dispensed Refills Start Date End Date Status amLODIPine (NORVASC) tablet 10 mg Take 1 tablet (10 mg total) by mouth daily. 0 02/23/2022 Active atorvastatin (LIPITOR) tablet 10 mg Take 1 tablet (10 mg total) by mouth every evening. 0 02/23/2022 Active chlorthalidone (HYGROTON) 25 MG tablet Take 1 tablet (25 mg total) by mouth daily. 0 02/23/2022 Active folic acid (FOLVITE) tablet 1 mg Take 1 tablet (1 mg total) by mouth daily. 0 02/23/2022 Active gabapentin (NEURONTIN) 300 MG capsule Take 1 capsule (300 mg total) by mouth 3 (three) times a day. 0 02/23/2022 Active melatonin 3 MG TABS tablet Take by mouth every night at bedtime. 0 02/23/2022 Active omeprazole (PriLOSEC) 20 MG capsule Take 1 capsule (20 mg total) by mouth daily. 0 12/17/2021 Active vitamin D3 (cholecalciferol) 25 MCG (1000 UT) tablet Take 2 tablets (2,000 Units total) by mouth daily. 0 02/23/2022 Active thiamine mononitrate (VITAMIN B-1) 100 MG tablet Take 1 tablet (100 mg total) by mouth daily. 0 02/23/2022 Active loratadine (CLARITIN) 10 MG tablet Take 1 tablet (10 mg total) by mouth daily. Take one tablet by mouth every morning for allergies 0 02/23/2022 Active acetaminophen (TYLENOL) 650 MG CR tablet TAKE 1 TABLET BY MOUTH EVERY 6 HOURS WITH WATER NEEDED FOR PAIN 0 12/29/2021 Active Flovent HFA 220 MCG/ACT inhaler 2 puffs 2 (two) times a day. 0 02/23/2022 Active ipratropium-albuterol (DUO-NEB) 0.5-2.5 mg/mL nebulizer INHALE 1 AMPULE USING A NEBULIZER FOUR TIMES DAILY NEEDED 0 12/22/2021 Active Multiple Vitamin (Multivitamin) TABS Take 1 tablet by mouth every morning. 0 02/23/2022 Active Ventolin HFA 108 (90 Base) MCG/ACT inhaler INHALE 2 PUFFS EVERY 4 TO 6 HOURS NEEDED 0 11/24/2021 Active Naltrexone-buPROPion HCl ER 8-90 MG TB12 Take by mouth. TAKE 1 TABLET BY MOUTH ONCE DAILY FOR 1 WEEK THEN INCREASE TO TWICE DAILY 0 10/01/2021 Active Diclofenac Sodium 3 % GEL Apply 2 g topically as needed. 0 08/21/2021 Active oxyCODONE (ROXICODONE) 5 MG immediate release tablet Take 1 tablet (5 mg total) by mouth every 4 (four) hours as needed for pain. 5 tablet 0 03/04/2022 Active Active Problems Problem Noted Date Diagnosed Date Acute cholecystitis 03/01/2022 Respiratory failure, post-operative 03/01/2022 Social History Tobacco Use Types Packs/Day Years Used Date Smoking Tobacco: Never Smokeless Tobacco: Never Tobacco Cessation:Counseling Given: Not Answered Alcohol Use Standard Drinks/Week Comments Not Currently 0 (1 standard drink = 0.6 oz pur e alcohol) Sex and Gender Information Value Date Recorded Sex Assigned at Male 02/28/2022 6:08 PM EST Gender Identity Not on file Sexual Orientation Not on file Job Start Date Occupation Industry Not on file Not on file Not on file Last Filed Vital Signs Vital Sign Reading Time Taken Comments Blood Pressure 132/71 03/04/2022 8:43 AM EST Pulse 86 03/04/2022 8:43 AM EST Temperature 37 C (98.6 F) 03/04/2022 8:43 AM EST Respiratory Rate 18 03/04/2022 8:43 AM EST Oxygen Saturation 96% 03/04/2022 8:43 AM EST Inhaled Oxygen Concentration - - Weight 208.2 kg (459 lb) 03/01/2022 1:06 AM EST Height 190.5 cm (6' 3 ) 03/01/2022 1:06 AM EST Body Mass Index 57.37 03/01/2022 1:06 AM EST Plan of Treatment Health Maintenance Due Date Last Done Comments Hepatitis B Vaccines (1 of 3 - 3-dose series) 1969 Hepatitis C Screening 1969 COVID-19 Vaccine (#1) 06/10/1970 Depression Screening 1981 BMI Counseling 12/12/1987 Preventative Health Evaluation 12/12/1987 DTap / Tdap / Td (1 - Tdap) 05/29/2005 05/28/2005 Colon Cancer Screening (Colonoscopy) 2014 Shingrix-Zoster Vaccine (1 of 2) 12/12/2019 Influenza Vaccine (#1) 2024 Pneumococcal Vaccine Aged Out No long er eligible based on patient's age to complete this topic RSV Ped < 20 months Aged Out No longe r eligible based on patient's age to complete this topic Advance Directives For more information, please contact: [phone] Latest Code Status on File Code Status Date Activated Date Inactivated Comments Full Code 03/01/2022 4:13 PM 03/04/2022 8:46 PM Thi s code status was ascertained in the following way: discussion with patient . Code Status History Code Status Date Activated Date Inactivated Comments Full Code 03/01/2022 1:18 AM 03/01/2022 4:13 PM Thi s code status was ascertained in the following way: discussion with patient . Care Teams Sky Diver Relationship Specialty Start Date End Date Valeria Tubbs MD [address] [facility] [place] [address] PCP - General Family Medicine 02/28/22
--- OUTSIDE RECORDS SUMMARY | 2024-11-28 08:55 | XMS_ITS | Patient Health Record ---
Author Organization [facility] Address [address] [place] [address] Care Team Providers Care Hvac Mechanical Engineer Name Role Phone Valeria Tubbs MD Primary Care Provider Leticia vailable Galen Duque [phone] Reason For Referral No Information Encounters Encounter Location Date Provider Diagnosis [facility] [address] [place] [address] 08/08/2024 Galen Duque Plan Of Treatment No Information Insurance Providers Payer Name Payer Address Payer Phone Subscriber Number Group Number Insured Name Patient Relationship to Insured Coverage Start Date Coverage End Date MEDICARE OF [place] [address] [place] [id number] LENKA PEDRO Self - patient is the insured MEDICAID OF [facility] [address] [place] [address] [id number] LENKA PEDRO Self - patient is the insured
--- OUTSIDE RECORDS SUMMARY | 2024-11-28 08:55 | XMS_ITS | Clinical Summary ---
Author Organization [facility] Address [address] [place] [id number] Care Team Providers Care Fly Tier Name Role Phone Valeria Tubbs MD Primary Care Provider [phone] Surgical History Surgery Date Site/Laterality Comments OTHER SURGICAL HISTORY Right 1989 PROCEDURE: AR RPR PRIM DISRUPTED LIGM ANKLE BTH COLTRL LIGMS; COMMENT: in [facility] Medical History Medical History Date Comments Essential hypertension, benign 05/07/2007 D X:Essential hypertension, benign Family History Relation Name Status Comments Brother (Age age 1 yr) brai n tumor, of seizure Father unknown Mother Alive Diabetes Social History Tobacco Use Types Packs/Day Years Used Date Smoking Tobacco: Every Day Alcohol Use Standard Drinks/Week Comments Yes 0 (1 standard drink = 0.6 oz pur e alcohol) Sex and Gender Information Value Date Recorded Sex Assigned at Not on file Legal Sex Male 6:47 PM EST Gender Identity Not on file Sexual Orientation Not on file Obstetrics History Plan of Treatment Health Maintenance Due Date Last Done Comments Hepatitis B Vaccines (1 of 3 - 19+ 3-dose series) 1988 Pneumococcal Vaccine: 50+ Years (1 of 2 - PCV) 1988 DTaP,Tdap,and Td Vaccines (2 - Td or Tdap) 05/28/2015 05/28/2005 Zoster Vaccines (1 of 2) 12/12/2019 Cholesterol Screening (Lipid Panel) 03/14/2022 Colorectal Cancer Screening: Colonoscopy 03/14/2022 HIV Screening 03/14/2022 Hepatitis C Screening 03/14/2022 Social Influencers of Health Screening 03/14/2022 Hypertension/CHF/CAD Annual BMP Blood Test 03/03/2023 03/03/2022, 03/02/2022, 03/01/2022, Additional history exists COVID-19 Vaccine (2023- season) 2023 Depression Screening 04/12/2024 Influenza Vaccine (#1) 2024 HIB Vaccines Aged Out No longer eligi ble based on patient's age to complete this topic HPV Vaccines Aged Out No longer eligi ble based on patient's age to complete this topic Hepatitis A Vaccines Aged Out No long er eligible based on patient's age to complete this topic IPV Vaccines Aged Out No longer eligi ble based on patient's age to complete this topic MMR Vaccines Aged Out No longer eligi ble based on patient's age to complete this topic Meningococcal ACWY Vaccine Aged Out N o longer eligible based on patient's age to complete this topic Meningococcal B Vaccine Aged Out No l onger eligible based on patient's age to complete this topic RSV Immunization Patients Under 20 months Aged Out No longer eligible based on patient's age to complete this topic Varicella Vaccines Aged Out No longer eligible based on patient's age to complete this topic Advance Directives Documents on File Type Date Recorded Patient Squirrel Man Expl anation Health Care Decision (hx) 05/15/2019 AD ODONNELL DIRECTIVE Health Care Decision (hx) 05/15/2019 AD ODONNELL DIRECTIVE Health Care Decision (hx) 05/15/2019 AD ODONNELL DIRECTIVE Health Care Decision (hx) 05/15/2019 AD ODONNELL DIRECTIVE Health Care Decision (hx) 05/15/2019 AD ODONNELL DIRECTIVE Health Care Decision (hx) 05/15/2019 AD ODONNELL DIRECTIVE Health Care Decision (hx) 05/15/2019 AD ODONNELL DIRECTIVE Health Care Decision (hx) 05/15/2019 AD ODONNELL DIRECTIVE Health Care Decision (hx) 05/15/2019 AD ODONNELL DIRECTIVE Health Care Decision (hx) 05/15/2019 AD ODONNELL DIRECTIVE Health Care Decision (hx) 05/15/2019 AD ODONNELL DIRECTIVE Health Care Decision (hx) 05/15/2019 AD ODONNELL DIRECTIVE Health Care Decision (hx) 05/15/2019 AD ODONNELL DIRECTIVE Health Care Decision (hx) 05/15/2019 AD ODONNELL DIRECTIVE Care Teams Fly Tier Relationship Specialty Start Date End Date Wyatt, MD Valeria [address] [place] [address] [phone] PCP - General Internal Medicine 07/10/20
--- OUTSIDE RECORDS SUMMARY | 2024-11-28 08:55 | XMS_ITS | Encounter Summary ---
Author Organization [facility] [employer] Address [address] [facility] [address] [place] [address] Care Team Providers Care Embossing Toolsetter Name Role Phone Valeria Tubbs MD Primary Care Provider [phone] CainCora OD Unavailable Kwaku Fonseca Unavailable Colten Padilla PharmD Unavailable [phone] Encounter Details Date Type Department Care Team (Late st Contact Info) Description 04/07/2023 Orders Only [facility] [address] [place], [place] [phone] Valeria Tubbs MD [address] [place], [place] [phone] Social History Tobacco Use Types Packs/Day Years Used Date Smoking Tobacco: Never Smokeless Tobacco: Never Depression Answer Date Recorded Patient Health Questionnaire-9 Score 0 09/16/2022 Housing Stability Answer Date Recorded What is your housing situation today? I have octaviano sweeney 01/27/[address] you li ve. Do you have problems with any of the following? None of the above 01/27/2023 Food Insecurity Answer Date Recorded Within the past 12 months, y ou worried that your food would run out before you got money to buy more: Never True 01/27/2023 Within the past 12 months,th e food you bought just didn't last and you didn't have enough money to get more: Never True Transportation Answer Date Recorded In the past 12 months, has l ack of transportation kept you from medical appts, meetings, work or from getting things needed for daily living? No 01/27/2023 Utilities Answer Date Recorded In the past 12 months, has t he electric, gas, oil or water company threatened to shut off services in your home? No 01/27/2023 Depression Answer Date Recorded Patient Health Questionnaire-2 Score 0 09/16/2022 Sex and Gender Information Value Date Recorded Sex Assigned at Male 02/09/2022 10:21 AM EDT Legal Sex Male 10:21 AM EDT Gender Identity Male 02/09/2022 10:21 AM EDT Sexual Orientation Straight 02/09/2022 10 :21 AM EDT documented as of this encounter Plan of Treatment Not on file documented as of this encounter Visit Diagnoses Not on filedocumented in this encounter Additional Health Concerns Assessment Noted Time PHQ-9 Depression Total Score: 0 09/17/19 23 1:55 PM EDT documented as of this encounter Care Teams Embossing Toolsetter Relationship Specialty Start Date End Date Valeria Tubbs MD [address] [place] [address] PCP - General Family Medicine 05/15/15 Cora Barlow OD [address] [place] [address] Optometry 03/27/24 Kwaku Fonseca [address] [place], [place] Sleep Medicine 03/27/24 Colten Padilla, Margot [address] [place] [address] Pharmacist Internal Medicine 07/11/24 08/07/24 documented as of this encounter
[2024-11-28 11:28] LABS: Hemoglobin A1C 148.5838 umol/L; Total Hemoglobin (HGBA1C) 3999.7186 umol/L
[2024-11-28 11:39] LABS: Alanine Aminotransferase 13 U/L (0-40); Albumin Level 4.0 g/dL (3.5-5.0); Alkaline Phosphatase 53 U/L (39-117); Anion Gap 14 (12-20); Aspartate Amino Transferase 27 U/L (5-37); Blood Urea Nitrogen 11 mg/dL (9-16); Calcium 9.2 mg/dL (8.4-10.2); Carbon Dioxide 27 mmol/L (22-29); Chloride 103 mmol/L (96-108); Cholesterol 216 mg/dL (<200); Estimated Glomerular Filt Rate > 60; HDL Cholesterol 52 mg/dL (>40); Potassium 3.2 mmol/L (3.3-5.1); Sodium 141 mmol/L (135-145); Total Protein 7.3 g/dL (6.5-8.0); Triglycerides 279 mg/dL (<150)
[2024-11-28 11:53] LABS: Microalbum/Creatinine Ratio Ur 4.3 ug/mg cr (<30); Syphilis Screen Nonreactive (Nonreactive)
[2024-11-28 11:54] LABS: HIV Num 1 0.05 S/CO (0.00-0.99); ~HepC Num1 0.14 S/CO (0.00-0.79); ~Hepatitis C Antibody Nonreactive (Nonreactive)
[2024-11-28 14:14] LABS: CT PCR Urine NOT DETECTED (Not Detect.); NG PCR Urine NOT DETECTED (Not Detect.)
== END 2024-11-28 08:18 | disposition home or self-care (01) ==
LOC: HO.HHCL 08:17
PROVIDERS: PCP Family Medicine; Visit Provider Family Medicine
DX: E11.9 Type 2 diabetes mellitus without complications (principal); Z11.3 Encounter for screening for infections with a predominantly sexual mode of transmission; Z11.59 Encounter for screening for other viral diseases; Z11.4 Encounter for screening for human immunodeficiency virus [HIV]; Z11.8 Encounter for screening for other infectious and parasitic diseases
CPT/HCPCS: 80048; 80061; 80076; 82043; 82570; 83036; 86780; 86803; 87389; 87491; 87591